=== PATIENT | female | born 1935 | race Caucasian/White ===

== ENCOUNTER 2021-10-09 07:45 | Outpatient (CLI) | payer MEDICARE, OTHER, SELFPAY | END 2021-10-09 07:46 | disposition home or self-care (01) | LOC: ANHAUDIO 07:47 | PROVIDERS: PCP Family Medicine; Visit Provider Otolaryngology | DX: H91.90 Unspecified hearing loss, unspecified ear (principal) | CPT/HCPCS: 92557; 92567 ==

== ENCOUNTER 2022-04-28 11:30 | Outpatient (RCR) | payer MEDICARE, OTHER, SELFPAY | END 2022-04-28 23:59 | disposition home or self-care (01) | LOC: ANHAUDIO 11:30 | PROVIDERS: PCP Family Medicine; Visit Provider Family Medicine | DX: Z46.1 Encounter for fitting and adjustment of hearing aid (principal) | CPT/HCPCS: 99199; V5160; V5260; V5261 ==

== ENCOUNTER 2022-10-20 17:37 | Outpatient (CLI) | payer MEDICARE, OTHER, SELFPAY | END 2022-10-20 17:38 | disposition home or self-care (01) | LOC: ANHAUDIO 17:37 | PROVIDERS: PCP Family Medicine; Visit Provider Family Medicine | DX: H90.3 Sensorineural hearing loss, bilateral (principal) | CPT/HCPCS: 92557; 92567 ==

== ENCOUNTER 2023-01-18 09:00 | Outpatient (RCR) | payer MEDICARE, OTHER, SELFPAY | END 2023-01-18 23:59 | disposition home or self-care (01) | LOC: ANHAUDIO 09:00 | PROVIDERS: PCP Family Medicine; Visit Provider Family Medicine | DX: Z46.1 Encounter for fitting and adjustment of hearing aid (principal) | CPT/HCPCS: 99199; V5260 ==

== ENCOUNTER → 2023-05-20 10:12 | Outpatient (CLI) | payer MEDICARE, BC, OTHER, SELFPAY ==
--- NOTE | ~2023-05-20 | US_ITS ---
EXAMINATION: US thyroid DATE: 05/20/2023 10:26 INDICATION: Hypothyroidism. TECHNIQUE: Multiple ultrasound images of the thyroid were obtained. COMPARISON: None. FINDINGS: The right thyroid lobe measures 3.0 x 1.0 x 0.7 cm. The left thyroid lobe measures 2.3 x 0.5 x 0.7 c m. There is normal echotexture and echogenicity throughout the thyroid gland. No discrete nodules id entified. Normal vascular flow is present. IMPRESSION: Small thyroid gland. Reviewed, dictated and finalized at location K. [employer] DIRECTOR IMPRESSION: Small thyroid gland.
== END ==
PROVIDERS: PCP Family Medicine; Visit Provider Nurse Practitioner
DX: E03.9 Hypothyroidism, unspecified (principal)
CPT/HCPCS: 76536

== ENCOUNTER 2023-08-09 08:42 | Outpatient (CLI) | payer MEDICARE, BC, OTHER, SELFPAY ==
--- NOTE | ~2023-08-09 | DEXA_ITS ---
Bone Density Report Name: CODY LUI Age: 87 Sex: Female Ethnicity: White Date of : 1935 Indication: postmenopausal; screening for osteoporosis; height loss; hysterectomy; Referring Provider: KHOI CALIXTO Study: Bone densitometry was performed. Exam Date: August 09, 2023 Accession number: [id number] Bone Density: Region BMD T-score Z-score Classification AP Spine (L1, L2, L3) 1.016 0.0 2.8 Normal Femoral Neck (Left) 0.694 -1.4 1.1 Osteopenia Total Hip (Left) 0.841 -0.8 1.5 Normal Femoral Neck (Right) 0.601 -2.2 0.3 Osteopenia Total Hip (Right) 0.769 -1.4 0.9 Osteopenia Total Hip Mean 0.805 -1.1 1.2 Osteopenia World Health Organization criteria for BMD impression classify patients as: Normal (T-score at or above -1.0), Osteopenia (T-score between -1.0 and -2.5), or Osteoporosis (T-score at or below -2.5). 10-year Fracture Risk(1): Major Osteoporotic Fracture 14% Hip Fracture 4.8% Reported Risk Factors: [place] (), Neck BMD=0.601, BMI=25.5 (1) FRAX(R) Version 3.08. Fracture probability calculated for an untreated patient. Fracture probability may be lower if the patient has received treatment. Previous Exams: Region Exam Age BMD T-score BMD Change BMD Change Date g/cm2 vs Baseline vs Previous AP Spine(L1, L2, L3) 08/09/2023 87 1.016 0.0 0.002 -0.026* 12/26/2015 80 1.041 0.2 0.028* -0.001 01/04/2011 75 1.043 0.2 0.029* 0.029* 09/15/2007 71 1.014 0.0 Total Hip(Left) 08/09/2023 87 0.841 -0.8 -0.145 -0.099* 12/26/2015 80 0.940 0.0 -0.045 -0.039* 01/04/2011 75 0.979 0.3 -0.006 0.038* 09/15/2007 71 0.942 0.0 -0.044 -0.044 04/16/2002 66 0.986 0.4 Total Hip(Right) 08/09/2023 87 0.769 -1.4 -0.247 -0.146* 12/26/2015 80 0.914 -0.2 -0.101 -0.017 01/04/2011 75 0.932 -0.1 -0.084 -0.018 09/15/2007 71 0.950 0.1 -0.066 -0.066 04/16/2002 66 1.016 0.6 *Denotes significance at 95% confidence level, LSC for AP Spine = 0.022 g/cm2, LSC for Total Hip = 0.027 g/cm2 Clinical Information Provided by Patient: Has the following medical conditions: Hysterectomy Patient maximum height was 64 Menopause Age: 43 Does not regularly consume dairy products Onset of menses at age 12 Number of children 4
== END 2023-08-09 08:43 ==
LOC: MICIMG 08:46
PROVIDERS: PCP Family Medicine; Visit Provider Family Medicine
DX: M85.89 Other specified disorders of bone density and structure, multiple sites (principal); Z78.0 Asymptomatic menopausal state
CPT/HCPCS: 77080

== ENCOUNTER 2023-12-16 09:21 | Outpatient (CLI) | payer MEDICARE, OTHER, SELFPAY | END 2023-12-16 09:22 | disposition home or self-care (01) | LOC: ANHAUDIO 09:21 | PROVIDERS: PCP Family Medicine; Visit Provider Family Medicine | DX: H90.3 Sensorineural hearing loss, bilateral (principal) | CPT/HCPCS: 92557; 92567; 99199 ==